=== PATIENT | female | born 1990 | race Caucasian/White ===

== ENCOUNTER 2016-12-31 09:11 | Inpatient (IN) | payer OTHER, MEDICAID ==
[~2016-12-31] VITALS: Ht 167.6 cm; Wt 106.8 kg
[~2016-12-31 09:11] MED LIST: AMOXICILLIN 50500 MG PO; NORCO 325 MG-51 TAB PO
[2017-01-11] VITALS (9 sets, daily range): BP systolic 96–123; BP diastolic 52–70; PULSE 70–92; TEMP 97.6
[2017-01-11] MEDS ORDERED: PRENATAL (19:30)
[2017-01-11 20:05] LABS: BASO % 0.3 % (0.0-2.0); EOS % 0.5 % (0-4.0); GRAN # 5.1 (1.4-6.5); GRAN % 64.6 % (42.2-75.2); LYMPH % 25.6 % (20.0-51.0); MEAN CELL VOLUME 76 fl (80.0-100.0); MEAN CORPUSCULAR HGB CONC 29 g/dl (33.0-37.0); MEAN PLATELET VOLUME 11.9 fl (7.4-10.4); MONO # 0.6 (0.1-0.6); MONO % 8.1 % (1.7-9.3); PLATELET COUNT 284 K/mm3 (130-400); RED BLOOD COUNT 4.24 M/mm3 (4.10-5.30); REDCELL DISTRIBUTION WIDTH-CV 17.5 % (11.5-14.5); WHITE BLOOD COUNT 7.8 K/mm3 (4.8-10.8)
[2017-01-11 20:06] LABS: HEMATOCRIT 32.1 % (37.0-47.0); HEMOGLOBIN 9.3 g/dl (12.5-16.0); MEAN CORPUSCULAR HEMOGLOBIN 22 pg (27.0-31.0)
[2017-01-12] VITALS (46 sets, daily range): BP systolic 82–131; BP diastolic 46–83; PULSE 60–139; TEMP 97.6–98.4
[2017-01-12] MEDS ORDERED: IBU800 M1 PO (16:42)
[2017-01-12] MEDS ORDERED: PERCOCET 325 MG1 TA2 PO (16:43)
[2017-01-13 00:19] VITALS: BP 119/59; PULSE 80; TEMP 98.1
[2017-01-13 07:12] LABS: BASO % 0.2 % (0.0-2.0); EOS # 0.1 (0.0-0.7); EOS % 0.7 % (0-4.0); GRAN # 7.9 (1.4-6.5); GRAN % 70.2 % (42.2-75.2); LYMPH % 17.3 % (20.0-51.0); MEAN CELL VOLUME 75 fl (80.0-100.0); MEAN CORPUSCULAR HGB CONC 29 g/dl (33.0-37.0); MONO # 1.2 (0.1-0.6); PLATELET COUNT 262 K/mm3 (130-400); REDCELL DISTRIBUTION WIDTH-CV 17.4 % (11.5-14.5); WHITE BLOOD COUNT 11.3 K/mm3 (4.8-10.8)
[2017-01-13 07:20] LABS: HEMATOCRIT 25.5 % (37.0-47.0); HEMOGLOBIN 7.4 g/dl (12.5-16.0); MEAN CORPUSCULAR HEMOGLOBIN 22 pg (27.0-31.0)
[2017-01-13 07:30] VITALS: BP 126/72; PULSE 98; TEMP 97.2
[2017-01-13 17:31] VITALS: BP 106/71; PULSE 90
[2017-01-14 08:20] VITALS: BP 114/75; PULSE 90; TEMP 97.6
== END 2017-01-14 15:20 | disposition home or self-care (01) | DRG 775 ==
LOC: EDSTATUS 09:11 → LDRO 13:25 → LDR 01-11 09:13 → OB 01-11 18:58 → LDR 01-11 18:58 → OB 01-12 20:39
PROVIDERS: Obstetrics & Gynecology
PROC: 10E0XZZ Delivery of Products of Conception, External Approach (ICD-10-PCS; principal; 2017-01-12)
PROC: 0KQM0ZZ Repair Perineum Muscle, Open Approach (ICD-10-PCS; 2017-01-12)
PROC: 3E0P7GC Introduction of Other Therapeutic Substance into Female Reproductive, Via Natural or Artificial Opening (ICD-10-PCS; 2017-01-12)
DX: O48.0 Post-term pregnancy (principal); O70.1 Second degree perineal laceration during delivery; O99.013 Anemia complicating pregnancy, third trimester; D64.9 Anemia, unspecified; O75.89 Other specified complications of labor and delivery; Z3A.40 40 weeks gestation of pregnancy; Z37.0 Single live birth
CPT/HCPCS: J2210; J2590; J7120

== ENCOUNTER → 2017-01-20 | Outpatient (CLI) | payer OTHER, MEDICAID ==
[~2017-01-20] MED LIST changes: +IBU800 M1 PO; +PERCOCET 325 MG1 TA2 PO; +PRENATAL
== END ==
LOC: OLC 13:56
DX: Z39.1 Encounter for care and examination of lactating mother (principal); Z71.89 Other specified counseling

== ENCOUNTER → 2017-02-07 | Outpatient (CLI) | payer OTHER, MEDICAID | LOC: OLC 13:00 | DX: Z39.1 Encounter for care and examination of lactating mother (principal); Z71.89 Other specified counseling ==